=== PATIENT | male | born 1950 | race Asian ===

== ENCOUNTER 2020-08-21 10:17 | Emergency (ER) | payer MEDICARE ==
[~2020-08-21] VITALS: Ht 172.7 cm; Wt 90.3 kg
--- NOTE | 2020-08-21 10:17 | NUR ---
DR. OCAMPO AT BEDSIDE FOR EVAL.
--- NOTE | 2020-08-21 10:17 | NUR ---
CODE STROKE ACTIVATED AT 1018
--- NOTE | 2020-08-21 10:17 | NUR ---
BIB [facility] FROM HOME, LEFT FACIAL DROOP SINCE 929,BLOOD SUGAR 125. PATIENT A/OX4, BREATHING EVEN AND UNLABORED, NO SOB NOTED, NEEDS ATTENDED, KEPT COMFORTABLE. ASSISTED TO BED. ACCUCHECK 136
--- NOTE | 2020-08-21 10:22 | NUR ---
PATIENT TAKEN TO CT.
[2020-08-21 10:25] LABS: BASOPHILS # (AUTO) 0.1 K/uL (0.0-0.2); BASOPHILS % (AUTO) 0.8 % (0.0-2.0); EOSINOPHILS % (AUTO) 2.5 % (0.0-6.0); HEMATOCRIT 45 % (39-51); LYMPHOCYTES # (AUTO) 1.8 K/uL (0.8-4.8); LYMPHOCYTES % (AUTO) 23.2 % (20.0-44.0); MEAN CORPUSCULAR HGB CONC 33 g/dl (31.0-36.0); MEAN CORPUSCULAR VOLUME 93 fL (80-96); MONOCYTES # (AUTO) 0.4 K/uL (0.1-1.30); MONOCYTES % (AUTO) 5.7 % (2.0-12.0); NEUTROPHILS # (AUTO) 5.2 K/uL (1.8-8.9); NEUTROPHILS % (AUTO) 67.8 % (43.0-81.0); PLATELET COUNT (AUTO) 237 K/uL (150-450); RED BLOOD CELL COUNT(AUTO) 4.85 MIL/uL (4.5-6.0); WHITE BLOOD COUNT (AUTO) 7.6 K/uL (4.3-11.0)
[2020-08-21] MEDS ORDERED: IOHEXOL-350 100 ML VIAL IV ONE (10:28)
[2020-08-21] MEDS ORDERED: IV NS 0.9% 250 ML IV ONE (10:29)
--- NOTE | 2020-08-21 10:32 | NUR ---
DR. BLOCK NEUROLOGIST CALLED AND SPOKE TO DR. OCAMPO.
[2020-08-21 10:33] LABS: CALCIUM, SERUM 9.2 mg/dL (8.5-10.1); CARBON DIOXIDE 28 mmol/L (21-32); CHLORIDE 102 mmol/L (98-107); CREATININE 1.1 mg/dL (0.6-1.3); GLUCOSE 128 mg/dL (74-106); POTASSIUM 4.1 mmol/L (3.5-5.1); SODIUM SERUM 139 mmol/L (136-145); UREA NITROGEN, BLOOD 24 mg/dL (7-18)
[2020-08-21] MEDS ORDERED: CLON0.2T PO (10:38)
[2020-08-21] MEDS ORDERED: LAMO100T17 PO (10:38)
[2020-08-21] MEDS ORDERED: LISI10TA29 PO (10:38)
[2020-08-21] MEDS ORDERED: ATOR80TA PO (10:38)
[2020-08-21] MEDS ORDERED: ALLO100T PO (10:38)
[2020-08-21] MEDS ORDERED: DULO60CA64 PO (10:38)
[2020-08-21 10:43] LABS: CHOLESTEROL 153 mg/dL (<200); HDL CHOLESTEROL 47 mg/dL (40-60); LDL 80 mg/dL (0-99); TRIGLYCERIDES 175 mg/dL (30-150)
--- NOTE | 2020-08-21 10:51 | NUR ---
PER DR. BLOCK, PATIENT IS NOT A CANDIDATE FOR TPA AT THIS TIME. PT HAS HX OF LEFT KNEE SURGERY ON MAY 09.
[2020-08-21] MEDS: ASPIRIN EC 325 MG TABLET.DR PO ONE (11:04)
[2020-08-21] MEDS ORDERED: ASPIRIN 325 MG TABLET ONE (11:06)
--- NOTE | 2020-08-21 11:11 | NUR ---
SURINDER AGUILA CALLED, LEFT A MESSAGE FOR A CALL BACK AT [phone]
--- NOTE | 2020-08-21 11:12 | NUR ---
COVID SWAB DONE AND SENT TO THE LAB
[2020-08-21] MEDS ORDERED: VRAYLAR (11:20)
--- NOTE | 2020-08-21 11:29 | NUR ---
CALLED [facility] AT [phone]
--- NOTE | 2020-08-21 11:45 | NUR ---
FAXED FACESHEET TO KENNY AT [facility] PH#[phone], FAX#[phone]
--- NOTE | 2020-08-21 12:10 | NUR ---
THE PATIENT GOING TO [facility] ROOM 3389. NURSE REPORT TO BE GIVEN CALLING [phone]. AMBULANCE IS ARRANGED BY [facility] WITH ETA OF 45 MIN.
--- NOTE | 2020-08-21 12:19 | NUR ---
REPORT GIVEN TO NURSE BERKOWITZ FROM [place].
--- NOTE | 2020-08-21 12:35 | NUR ---
[facility] CALLED PER REQUEST,SPOKE WITH ANITA
--- NOTE | 2020-08-21 13:06 | NUR ---
NIH STROKE SCALE RECHECKED AND STILL NOTED TO BE 1. THE PATIENT IS IN NO APPARENT DISTRESS.
--- NOTE | 2020-08-21 13:30 | NUR ---
RECEIVED A CALL FROM [facility]. PATIENT IS ACCEPTED AT [facility] UNDER DR. HART. CALLED PHONE # [phone]. CALLED [facility] AND STATED NO BED AVAILABLE AT THIS TIME, STILL WAITING FOR DISCHARGES. PATIENT AND FAMILY MADE AWARE AND ARE WILLING TO WAIT. DR. OCAMPO AT BEDSIDE WELL.
--- NOTE | 2020-08-21 13:37 | NUR ---
TRANSPORTATION CANCELLED FOR [facility] SURINDER. PATIENT REJECTED [facility] AND WANTS TO WAIT FOR THE [facility].
--- NOTE | 2020-08-21 14:21 | NUR ---
THE PATIENT IN NO APPARENT DISTRESS. AT THE BEDSIDE.
--- NOTE | 2020-08-21 15:20 | NUR ---
NIH STROKE SCALE 1. THE PATIENT RESTING IN BED. AT THE BEDSIDE AT ALL TIMES.
--- NOTE | 2020-08-21 16:44 | NUR ---
THE PATIENT IN BED. ALERT AND ORIENTED X4. DENIES PAIN. IN ROOM AIR AND DENIES SOB. RESPIRATION REGULAR AND UNLABORED. WAITING FOR DINNER TO ARRIVE.
--- NOTE | 2020-08-21 17:23 | NUR ---
THE PATIENT IS HAVING DINNER. TOLERATED PROVIDED FOOD WELL. WILL CONTINUE TO MONITOR THE PATIENT.
--- NOTE | 2020-08-21 18:33 | NUR ---
THE PATIENT IS ALERT AND ORIENTED X4. IN NO APPARENT DISTRESS. WILL CONTINUE TO MONITOR THE PATIENT.
--- NOTE | 2020-08-21 18:35 | NUR ---
FOLLOWED UP WITH [facility] PHONE # [phone] NO BED AVAILABLE AT THIS TIME.
--- NOTE | 2020-08-21 19:30 | NUR ---
RECEIVED REPORT FOR JONATHAN, PATIENT CONNECTED TO MONITOR, VSS, PATIENT IN NO ACUTE DISTRESS.
[2020-08-21] MEDS ORDERED: CLONIDINE HCL 0.1 MG TABLET ONE (20:57)
[2020-08-21] MEDS ORDERED: ATORVASTATIN 40 MG TABLET ONE (20:57)
[2020-08-21] MEDS ORDERED: LamoTRIgine 100 MG TABLET PO SCH (21:00)
[2020-08-21] MEDS ORDERED: ALLOPURINOL 100 MG TABLET PO SCH (21:00)
[2020-08-21] MEDS ORDERED: LISINOPRIL (10MG) 10 MG TABLET PO SCH (21:00)
[2020-08-21] MEDS: CLONIDINE HCL 0.1 MG TABLET PO ONE (21:02)
[2020-08-21] MEDS: ATORVASTATIN 40 MG TABLET PO ONE (21:02)
--- NOTE | 2020-08-21 21:10 | NUR ---
CALLED [facility] TRAN[facility] TO FOLLOW UP,. "AT 102% CAPACITY AND UNABLE TO RECEIVE THE PT AT THIS TIME"
[2020-08-21] MEDS ORDERED: DULOXETINE HCL 30 MG CAPSULE.DR ONE (21:33)
[2020-08-21] MEDS: DULOXETINE HCL 30 MG CAPSULE.DR PO ONE (21:34)
--- NOTE | 2020-08-21 22:30 | NUR ---
PT AND HIS HAD A CONVERSATION REGATRDING TRANSPORTATION WITH ME AND TIRE GROOVER, RAFAL. PT ACCEPTED TO BE TRANSFERRED TO [facility]. SURINDER AGUILA CALLED, LEFT A MESSAGE FOR A CALL BACK AT [phone]
--- NOTE | 2020-08-21 23:00 | NUR ---
SPOKE TO MEGAN AT [facility] AND FAXED FACE SHEET AND CLINICAL OVER
--- NOTE | 2020-08-21 23:27 | NUR ---
CALLED [facility] TRANSFER LINE AT [phone]. PT GOT ACCEPTED BY DR LA FIELD AGAIN . AWAITING FOR BED ASSIGNMENT.
--- NOTE | 2020-08-21 23:35 | NUR ---
PT GOT ACCEPTED AT [facility] BY DR LAKHANI, [facility]. ETA AND ROOM NUMBER TO BE ASSIGNED
--- NOTE | 2020-08-22 00:02 | NUR ---
PT AND THE WERE UPDATED REGARDING TRANSFER TO [facility]. PT WAS GOWNED UP AND A SECOND IV LINE STARTED WAS STARTED ON L HAND W/ GOOD BLOOD RETURN. WILL CONT TO MONITOR WHILE WAITING FOR TRANSPO
--- NOTE | 2020-08-22 00:13 | NUR ---
NUMBER: [id number] # FOR REPORT: [phone]
--- NOTE | 2020-08-22 00:24 | NUR ---
REPORT GIVEN TO LOREE AT [facility]
--- NOTE | 2020-08-22 00:35 | NUR ---
CCT AT BED SIDE TO STONEWORKING BELT SANDER THE PT
[2020-08-22 01:46] VITALS: BP 124/74
== END 2020-08-22 01:47 | disposition short-term general hospital (02) ==
LOC: ER 10:25
DX: G45.9 Transient cerebral ischemic attack, unspecified (principal); I10 Essential (primary) hypertension; Z91.041 Radiographic dye allergy status; Z91.013 Allergy to seafood
CPT/HCPCS: 36415; 70450; 70496; 70498; 71045; 80048; 80061; 84484; 85025; 85730; 86850; 87426; 93005; 99291; J7050; Q9967; C9803